=== PATIENT | male | born 1945 | race Caucasian/White ===

== ENCOUNTER 2022-06-07 15:00 | Observation (INO) | payer MEDICARE ==
[~2022-06-07] VITALS: Ht 182.9 cm; Wt 91.6 kg
[2022-06-07] VITALS (10 sets, daily range): BP systolic 137–163; BP diastolic 78–117
[~2022-06-07 15:00] MED LIST: AML5T PO; LISI20TA PO
[2022-06-07] MEDS ORDERED: CALCIUM CARBONATE 500 MG (TUMS) TAB.CHEW PO PRN (15:15)
[2022-06-07] MEDS ORDERED: morphine INJ 4 MG/ML 1 ML (VIAL/SYRINGE) IV PRN (15:15)
[2022-06-07] MEDS ORDERED: MELATONIN 3 MG TABLET PO PRN (15:15)
[2022-06-07] MEDS ORDERED: polyethylene glycoL POWDER 17 GM (MIRALAX) PACK PO PRN (15:15)
[2022-06-07] MEDS ORDERED: ANTACID SUSP 30 ML UDC (MYLANTA) PO PRN (15:15)
[2022-06-07] MEDS ORDERED: diphenhydrAMINE 25 MG TAB (BENADRYL) PO PRN (15:15)
[2022-06-07] MEDS ORDERED: diphenhydrAMINE 50 MG/ML INJ (BENADRYL) IVP PRN (15:15)
[2022-06-07] MEDS ORDERED: BISACODYL 10 MG SUPP (DULCOLAX) PR PRN (15:15)
[2022-06-07] MEDS ORDERED: ONDANSETRON 4 MG/2 ML (SDV) Z0FRAN IV PRN (15:15)
[2022-06-07] MEDS ORDERED: ENOXAPARIN 40 MG/0.4 ML (LOVENOX) SYR SC SCH (15:15)
[2022-06-07] MEDS ORDERED: ONDANSETRON 4 MG (ZOFRAN) ORAL DISSOLVE TAB PO PRN (15:15)
[2022-06-07] MEDS ORDERED: MILK OF MAGNESIA 400 MG/5 ML 30 ML UDC PO PRN (15:15)
[2022-06-07] MEDS ORDERED: LACTULOSE SYRUP 10GM/15ML (ENULOSE) 30ML UDC PO PRN (15:15)
[2022-06-07] MEDS ORDERED: ACETAMINOPHEN 325 MG TABLET PO PRN (15:15)
--- NOTE | 2022-06-07 15:43 | Diagnostic Imaging Report ---
INDICATION: CVA. FINDINGS: Portable chest. The lungs are well-aerated and clear. The heart is not enlarged. No pneumothorax or pleural effusion. No bony abnormalities. IMPRESSION: Normal PA and lateral chest. Dictated by: Dictated on workstation # [id number]
[2022-06-07 15:48] LABS: BASOPHILS % (AUTO) 0 % (0-10); EOSINOPHILS # (AUTO) 0.1 10^3/uL (0.0-0.3); EOSINOPHILS % (AUTO) 2 % (0-10); HEMATOCRIT 43 % (40-54); HEMOGLOBIN 14.4 g/dL (13.3-17.7); LYMPHOCYTES # (AUTO) 2.1 X 10^3 (1.0-4.0); LYMPHOCYTES % (AUTO) 25 % (12-44); MEAN CORPUSCULAR HEMOGLOBIN 29 pg (25-34); MEAN CORPUSCULAR HGB CONC 34 g/dL (32-36); MEAN CORPUSCULAR VOLUME 86 fL (80-99); MEAN PLATELET VOLUME 9.4 fL (9.0-12.2); MONOCYTES # (AUTO) 0.7 X 10^3 (0.0-1.0); MONOCYTES % (AUTO) 8 % (0-12); NEUTROPHILS # (AUTO) 5.4 X 10^3 (1.8-7.8); NEUTROPHILS % (AUTO) 65 % (42-75); PLATELET COUNT 241 10^3/uL (130-400); WHITE BLOOD COUNT 8.3 10^3/uL (4.3-11.0)
[2022-06-07 16:02] LABS: POTASSIUM 3.6 MMOL/L (3.6-5.0)
[2022-06-07 16:03] LABS: ALBUMIN 4.1 GM/DL (3.2-4.5)
[2022-06-07 16:04] LABS: CALCIUM 9.3 MG/DL (8.5-10.1)
[2022-06-07 16:05] LABS: TOTAL PROTEIN 7.1 GM/DL (6.4-8.2)
[2022-06-07 16:07] LABS: BILIRUBIN,TOTAL 0.6 MG/DL (0.1-1.0)
[2022-06-07 16:08] LABS: FIBRIN DEGRADATION PRODUCTS 0.39 UG/ML (0.00-0.49); PROTHROMBIN TIME PATIENT 13.6 SEC (12.2-14.7)
[2022-06-07 16:09] LABS: CREATININE SERUM 0.76 MG/DL (0.60-1.30)
--- NOTE | 2022-06-07 16:29 | Diagnostic Imaging Report ---
PROCEDURE: US carotid duplex, bilateral. TECHNIQUE: Multiple real-time grayscale images were obtained over the carotid arteries in various projections, bilaterally. Additional spectral analysis and color Doppler duplex images were also obtained. INDICATION: Cerebrovascular accident. FINDINGS: There is minimal atherosclerotic plaque present within the carotid arteries. Normal arterial waveforms are seen bilaterally. Internal carotid arteries are tortuous. No occlusion or focal velocity elevation is identified. There is antegrade flow within both vertebral arteries. IMPRESSION: Tortuosity of carotid arteries without ultrasound evidence of hemodynamically significant stenosis. Parameters based on the consensus panel Wu-Scale and Doppler ultrasound criteria published June 2003, Radiology, Volume 229. DOPPLER (peak systolic velocity M/S Right Left CCA .63 .73 ICA Proximal .31 .19 ICA Mid .38 .35 ICA Distal .45 .41 RATIO .72 .57 ECA .54 .40 VERT .36 .18 Dictated by: Dictated on workstation # [id number]
--- NOTE | 2022-06-07 16:59 | Diagnostic Imaging Report ---
PROCEDURE: MR imaging of the brain without contrast. TECHNIQUE: Multiplanar, multisequence MR imaging of the brain was performed without contrast. INDICATION: Dizziness. Loss of balance. History of basal cell carcinoma. History of colon cancer. COMPARISON: 06/22/2012. FINDINGS: No acute ischemia, mass, or hemorrhage. Focal and confluent T2 hyperintense signal seen in the periventricular and subcortical white matter. The ventricles, cortical sulci, and basilar cisterns are symmetric and unremarkable. The sellar and suprasellar regions have a normal appearance. The brainstem and posterior fossa are unremarkable. The paranasal sinuses demonstrate normal signal characteristics. Surgical changes are seen in the right mastoid air cells with right-sided mastoid effusion and resection of the right auricle. Bilateral lens implants are noted. The scalp and calvarium are intact. IMPRESSION: 1. No acute ischemia, mass, or hemorrhage. 2. Scattered chronic microvascular disease in the periventricular and subcortical white matter. 3. Postsurgical changes of right auricle resection with fluid in the mastoid air cells. Dictated by: Dictated on workstation # [id number]
[2022-06-07] MEDS ORDERED: LOVA10TA PO (17:20)
[2022-06-07] MEDS ORDERED: LOSA100T57 PO (17:20)
[2022-06-07] MEDS ORDERED: PATIENT MAY USE OWN MEDS, ALL MC SCH (19:45)
[2022-06-07] MEDS: AUGMENTIN 875 MG TAB (AMOXICILLIN/CLAVULANATE) PO SCH (19:59)
[2022-06-07] MEDS ORDERED: NON-FORMULARY MEDICATION 1 EA EA (Lovastatin 10 MG) PO SCH (21:00)
[2022-06-07] MEDS ORDERED: LOVASTATIN 10 MG TAB PO SCH (21:00)
[2022-06-07] MEDS: DOCUSATE SODIUM 100 MG (COLACE) CAP PO SCH (21:19)
[2022-06-07] MEDS: SENNOSIDES 8.6 MG (SENOKOT) TAB PO SCH (21:19)
[2022-06-08 00:20] VITALS: BP 130/92
[2022-06-08 01:16] VITALS: BP 130/92
[2022-06-08 04:00] VITALS: BP 133/80
[2022-06-08 04:22] LABS: BASOPHILS # (AUTO) 0.1 10^3/uL (0.0-0.1); BASOPHILS % (AUTO) 1 % (0-10); EOSINOPHILS # (AUTO) 0.2 10^3/uL (0.0-0.3); EOSINOPHILS % (AUTO) 3 % (0-10); HEMATOCRIT 41 % (40-54); HEMOGLOBIN 13.7 g/dL (13.3-17.7); LYMPHOCYTES # (AUTO) 2.4 10^3/uL (1.0-4.0); LYMPHOCYTES % (AUTO) 31 % (12-44); MEAN CORPUSCULAR HEMOGLOBIN 29 pg (25-34); MEAN CORPUSCULAR HGB CONC 33 g/dL (32-36); MEAN CORPUSCULAR VOLUME 86 fL (80-99); MEAN PLATELET VOLUME 9.7 fL (9.0-12.2); MONOCYTES # (AUTO) 0.6 10^3/uL (0.0-1.0); MONOCYTES % (AUTO) 8 % (0-12); NEUTROPHILS # (AUTO) 4.5 10^3/uL (1.8-7.8); NEUTROPHILS % (AUTO) 57 % (42-75); PLATELET COUNT 225 10^3/uL (130-400); WHITE BLOOD COUNT 7.8 10^3/uL (4.3-11.0)
[2022-06-08 04:42] LABS: ALBUMIN 3.6 GM/DL (3.2-4.5)
[2022-06-08 04:43] LABS: POTASSIUM 3.6 MMOL/L (3.6-5.0)
[2022-06-08 04:44] LABS: CALCIUM 8.6 MG/DL (8.5-10.1)
[2022-06-08 04:45] LABS: TOTAL PROTEIN 6.4 GM/DL (6.4-8.2)
[2022-06-08 04:47] LABS: BILIRUBIN,TOTAL 0.7 MG/DL (0.1-1.0)
[2022-06-08 04:49] LABS: CREATININE SERUM 0.74 MG/DL (0.60-1.30)
[2022-06-08 08:00] VITALS: BP 146/79
[2022-06-08] MEDS: DOCUSATE SODIUM 100 MG (COLACE) CAP PO SCH (08:55)
[2022-06-08] MEDS: AUGMENTIN 875 MG TAB (AMOXICILLIN/CLAVULANATE) PO SCH (08:56)
[2022-06-08] MEDS: SENNOSIDES 8.6 MG (SENOKOT) TAB PO SCH (08:56)
[2022-06-08] MEDS ORDERED: amLODIPine 5 MG (NORVASC) TAB PO SCH (09:00)
[2022-06-08] MEDS ORDERED: LOSARTAN 100 MG (COZAAR) TABLET PO SCH (09:00)
[2022-06-08] MEDS ORDERED: ASPIRIN 325 MG (5 GR) TABLET PO SCH (09:00)
--- NOTE | 2022-06-08 09:38 | Physical Therapy Evaluation ---
PT Evaluation-General Medical Diagnosis Admission Date Jun 07, 2022 at 15:00 Medical Diagnosis: Suspect CVA v. Inner ear infection Onset Date: Jun 07, 2022 Therapy Diagnosis Therapy Diagnosis: Dizziness Height/Weight Weight (Pounds): 208 Precautions Precautions/Isolations: Fall Prevention, Standard Precautions Weight Bear Status Weight Bearing/Tolerated Weight Bearing/Tolerated Referral Physician: Vania Reason for Referral: Evaluation/Treatment Medical History Pertinent Medical History: CVA Current History Pt present to Dr office with c/o dizziness when looking down. Pt worried as he has had 2 CVA in the past and these were the same symptoms. Pt underwent testing, which revealed no new CVA, per pt report. However, they state that he has an inner ear infection which were causing the symptoms. Reviewed History: Yes Social History Home: Single Level Current Living Status: Significant Other Entry Into Home: Stairs Without Railing PT Steps Into Home: 2 Prior Prior Level of Function SCALE: Activities may be completed with or without assistive devices. 9-Vhjmztmulz-okgehir completes the activity by him/herself with no assistance from a helper. 5-Set-up or Clean-up Assistance-helper sets up or cleans up; patient completes activity. [place] assists only prior to or following the activity. 4-Supervision or Touching Assistance-helper provides verbal cues and/or touching/steadying and/or contact guard assistance as patient completes activity. Assistance may be provided throughout the activity or intermittently. 3-Partial/Moderate Assistance-helper does LESS THAN HALF the effort. [place] lifts, holds or supports trunk or limbs, but provides less than half the effort. 2-Substantial/Maximal Assistance-helper does MORE THAN HALF the effort. [place] lifts or holds trunk or limbs and provides more than half the effort. 9-Mkmmqginl-irvwys does ALL the effort. Patient does none of the effort to complete the activity. Or, the assistance of 2 or more helpers is required for the patient to complete the activity. If activity was not attempted, code reason: 7-Patient Refused. 9-Not Applicable-not attempted and the patient did not perform the activity before the current illness, exacerbation or injury. 10-Not Attempted due to Environmental Limitations-(lack of equipment, weather restraints, etc.). 88-Not Attempted due to Medical Conditions or Safety Concerns. Bed Mobility: 6 Transfers (B,C,W/C): 6 Gait: 6 Stairs: 6 Prior Devices Use: None PT Evaluation-Current Subjective Pt seated at EOB with family present at bedside. Agreeable to PT treatment, as he needs to use the restroom. No c/o dizziness or pain at this time. Pt/Family Goals return home Objective Patient Orientation: Person, Place, Time, Situation ROM/Strength ROM Lower Extremities WFL Strength Lower Extremities WFL Integumentary/Posture Integumentary refer to nursing notes Bowel Incontinence: No Bladder Incontinence: No Neuromuscular (Tone, Coordination, Reflexes) intact Sensory Vision: Functional Hearing: Functional Hand Dominance: Right Sensation Right Lower Extremit: Intact Sensation Left Lower Extremity: Intact Transfers Sit to Stand (QC): 6 Gait Walk 10 feet (QC): 6 Walk 50 ft with 2 Turns(QC): 6 Comments/Gait Description Pt walks with steady gait and no device, at PLOF per pt report Balance Sitting Static: Normal Sitting Dynamic: Normal Standing Static: Normal Standing Dynamic: Normal Assessment/Needs Pt is a 77 y.o male who presents at baseline in overall functional mobility. No further PT treatment necessary at this time. Rehab Potential: Good PT Plan Treatment/Plan Treatment Plan: Discontinue PT, goals met Treatment Duration: Jun 08, 2022 Frequency: DC PT Patient and/or Family Agrees t: Yes Time Time In: 910 Time Out: 920 Total Billed Treatment 1 visit, PAULO (10') FERN HARVEY PT Jun 08, 2022 09:38
--- NOTE | 2022-06-08 11:28 | Short Stay Summary ---
History of Present Illness History of Present Illness Reason for visit/HPI Chief complaint: Severe vertigo suspected recurrent CVA HPI: This is a 77-year-old male clinic patient of mine with a prior stroke who p resented to my office as an urgent appointment due to severe vertigo. Patient had symptoms that were so severe that I suspected recurrent stroke as he had had years ago. Patient was admitted and placed on telemetry which revealed normal sinus rhythm and EKG showed no ST changes. D-dimer was negative. MRI showed no evidence of new stroke. It did show fluid in the right mastoid where he had his ear removed due to cancer and it appears that that has relevance to the current symptoms that he was placed on Augmentin and discharged home in improved condition. Date of Admission Jun 07, 2022 at 15:00 Date of Discharge 06/08/2022 Time Seen by Provider: 11:30 Attending Physician Max Haddad MD Admitting Physician Admitting Physician: Sheila Caro DO Attending Physician: Sheila Caro DO Consult Allergies and Home Medications Allergies Coded Allergies: No Known Drug Allergies (Unverified , 04/10/13) Patient Home Medication List Home Medication List Reviewed: Yes Amlodipine Besylate (Norvasc) 5 Mg Tablet, 1 TAB PO DAILY Prescribed by: SHEILA CARO on 04/11/13 1120 Last Action: Continued Amoxicillin/Potassium Clav (Amox Tr-K Clv 875-125 mg Tab) 875 Mg-125 Mg Tablet, 1 EACH PO BID Prescribed by: SHEILA CARO on 06/08/22 1134 Losartan Potassium (Losartan Potassium) 100 Mg Tablet, 100 MG PO DAILY, (Reported) Entered as Reported by: SHEILA CARO on 06/07/22 172 Last Action: Continued Lovastatin (Lovastatin) 10 Mg Tablet, 10 MG PO HS, (Reported) Entered as Reported by: SHEILA CARO on 06/07/22 172 Last Action: Converted Discontinued Medications Lisinopril (Prinivil) 20 Mg Tablet, 30 MG PO DAILY, (Reported) Entered as Reported by: JADA QUIROZ on 04/10/13 1137 Last Action: Discontinued Past Hmnmdgq-Ysolpo-Xdjlcz Hx Patient Social History Marrital Status: Employed/Student: retired Smoking Status: Never a Smoker Have you traveled recently?: No Alcohol Use?: Yes Pt feels they are or have been: No Immunizations Up To Date Date of Influenza Vaccine: Apr 24, 2022 Cardiovascular High Cholesterol, Hypertension Neurological Stroke Cancer Skin, Colon Family Medical History Significant Family History: Hypertension Review of Systems Constitutional: see HPI, dizziness Physical Exam Vital Signs Vital Signs - First Documented 06/07/22 06/07/22 06/08/22 15:00 15:30 01:16 Pulse 71 Resp 22 B/P (MAP) 155/91 Pulse Ox 97 O2 Delivery Room Air FiO2 21 Capillary Refill : Height, Weight, BMI Height: '" Weight: 208lbs. oz. 94.004738kc; 26.33 BMI Method:Actual General Appearance: No Apparent Distress, WD/WN Eyes: Bilateral Eye Normal Inspection, Bilateral Eye PERRL, Bilateral Eye EOMI HEENT: PERRL/EOMI, TMs Normal, Normal ENT Inspection, Pharynx Normal Neck: Full Range of Motion, Normal Inspection, Non Tender, Supple, Carotid Bruit Respiratory: Chest Non Tender, Lungs Clear, Normal Breath Sounds, No Accessory Muscle Use, No Respiratory Distress Cardiovascular: Regular Rate, Rhythm, No Edema, No Gallop, No JVD, No Murmur, Normal Peripheral Pulses Gastrointestinal: Normal Bowel Sounds, No Organomegaly, No Pulsatile Mass, Non Tender, Soft Back: Normal Inspection, No CVA Tenderness, No Vertebral Tenderness Extremity: Normal Capillary Refill, Normal Inspection, Normal Range of Motion, Non Tender, No Calf Tenderness, No Pedal Edema Neurologic/Psychiatric: Alert, Oriented x3, No Motor/Sensory Deficits, Normal Mood/Affect Skin: Normal Color, Warm/Dry Lymphatic: No Adenopathy Short Stay Diagnosis Discharge Diagnosis-Short Stay Admission Diagnosis: Severe vertigo suspect recurrent CVA Final Discharge Diagnosis: Severe vertigo no evidence of CVA but mastoid fluid likely the source Conclusion Labs Laboratory Tests 06/07/22 15:40: White Blood Count 8.3, Red Blood Count 4.99, Hemoglobin 14.4, Hematocrit 43, Mean Corpuscular Volume 86, Mean Corpuscular Hemoglobin 29, Mean Corpuscular Hemoglobin Concent 34, Red Cell Distribution Width 14.3, Platelet Count 241, Mean Platelet Volume 9.4, Immature Granulocyte % (Auto) 0, Neutrophils (%) (Auto) 65, Lymphocytes (%) (Auto) 25, Monocytes (%) (Auto) 8, Eosinophils (%) (Auto) 2, Basophils (%) (Auto) 0, Neutrophils # (Auto) 5.4, Lymphocytes # (Auto) 2.1, Monocytes # (Auto) 0.7, Eosinophils # (Auto) 0.1, Basophils # (Auto) 0.0, Immature Granulocyte # (Auto) 0.0, Prothrombin Time 13.6, INR Comment 1.0, Activated Partial Thromboplast Time 26, D-Dimer 0.39, Sodium Level 139, Potassium Level 3.6, Chloride Level 106, Carbon Dioxide Level 26, Anion Gap 7, Blood Urea Nitrogen 17, Creatinine 0.76, Estimat Glomerular Filtration Rate 93, BUN/Creatinine Ratio 22, Glucose Level 123H, Calcium Level 9.3, Corrected Calcium 9.2, Total Bilirubin 0.6, Aspartate Amino Transf (AST/SGOT) 18, Alanine Aminotransferase (ALT/SGPT) 13, Alkaline Phosphatase 78, Total Protein 7.1, Albumin 4.1, Triglycerides Level 241H, Cholesterol Level 171, LDL Cholesterol Direct 82, VLDL Cholesterol 48H, HDL Cholesterol 38L 06/08/22 03:49: White Blood Count 7.8, Red Blood Count 4.78, Hemoglobin 13.7, Hematocrit 41, Mean Corpuscular Volume 86, Mean Corpuscular Hemoglobin 29, Mean Corpuscular Hemoglobin Concent 33, Red Cell Distribution Width 14.0, Platelet Count 225, Mean Platelet Volume 9.7, Immature Granulocyte % (Auto) 0, Neutrophils (%) (Auto) 57, Lymphocytes (%) (Auto) 31, Monocytes (%) (Auto) 8, Eosinophils (%) (Auto) 3, Basophils (%) (Auto) 1, Neutrophils # (Auto) 4.5, Lymphocytes # (Auto) 2.4, Monocytes # (Auto) 0.6, Eosinophils # (Auto) 0.2, Basophils # (Auto) 0.1, Immature Granulocyte # (Auto) 0.0, Sodium Level 138, Potassium Level 3.6, Chloride Level 107, Carbon Dioxide Level 22, Anion Gap 9, Blood Urea Nitrogen 16, Creatinine 0.74, Estimat Glomerular Filtration Rate 94, BUN/Creatinine Ratio 22, Glucose Level 99, Calcium Level 8.6, Corrected Calcium 8.9, Total Bilirubin 0.7, Aspartate Amino Transf (AST/SGOT) 19, Alanine Aminotransferase (ALT/SGPT) 13, Alkaline Phosphatase 69, Total Protein 6.4, Albumin 3.6 Conclusion/Plan Discharge home SHEILA CARO DO Jun 08, 2022 11:28
[2022-06-08] MEDS ORDERED: AMOX1TAB12 PO (11:34)
[2022-06-08 11:58] VITALS: BP 146/79
== END 2022-06-08 11:33 | disposition home or self-care (01) ==
LOC: CSD 15:00 → UNDOADMOB 15:00 → CSD 15:25 → UNDODISOB 06-08 11:33
PROVIDERS: ADMIT Internal Medicine; ATTEND Internal Medicine
DX: R42 Dizziness and giddiness (principal); Z86.73 Personal history of transient ischemic attack (TIA), and cerebral infarction without residual deficits
CPT/HCPCS: 70551; 71045; 80053 ×2; 80061; 85025 ×2; 85379; 85610; 85730; 93005; 93880; 94664; 96372; 97161; G0378; G0379; 36415